=== PATIENT | female | born 1965 | race Caucasian/White ===

== ENCOUNTER 2016-12-09 03:50 | Inpatient (IN) | payer OTHER ==
[2016-12-09 04:07] LABS: #Basophils 0.1 thou/uL (0.0-0.2); #Eosinphils 0.2 thou/uL (0.0-0.7); #Lymphocytes 3.4 thou/uL (1.20-3.40); #Monocytes 0.9 thou/uL (0.11-0.59); #Neutrophils 7.2 thou/uL (1.40-6.50); %Basophils 0.9 % (0.0-1.0); %Eosinophils 1.5 % (0.0-10.0); %Lymphocytes 28.3 % (21.0-51.0); %Monocytes 7.9 % (0.0-10.0); Hematocrit 46.3 % (36.0-47.0); Mean Platelet Volume 7.4 fL (7.4-10.4); Red Blood Cell (RBC) Count 4.99 mill/uL (4.20-5.40); White Blood Cell (WBC) Count 11.8 thou/uL (4.8-10.8)
[2016-12-09 04:17] LABS: PTT 27.8 SEC (22.9-36.1); Prothrombin Time 12.8 SEC (12.0-14.7)
[2016-12-09 04:29] LABS: ALT (SGPT) 9 U/L (8-55); AST (SGOT) 12 U/L (5-34); Alkaline Phosphatase 96 U/L (40-150); Anion Gap 12 mmol/L (10-20); BUN (Urea Nitrogen) 8 mg/dL (9.8-20.1); Bilirubin, Total 0.3 mg/dL (0.2-1.2); Calc. Creatinine Clearance 0 mL/min (70-130); Carbon Dioxide 27 mmol/L (22-29); Chloride 106 mmol/L (98-107); Estimated GFR-MDRD 71; Globulin 3.1 g/dL (2.4-3.5); Protein, Total 6.6 g/dL (6.0-8.3)
[2016-12-09 04:47] LABS: Bilirubin Negative (Negative); Blood, Urine Negative (Negative); Glucose, Urine (Dipstick) Negative (Negative); Ketone, Urine Negative (Negative); Nitrite Negative (Negative); Protein, Urine (Dipstick) Negative (Neg-Trace); Urobilinogen 0.2 mg/dL (0.2-1.0)
[2016-12-09 04:51] LABS: Troponin I Less than 0.010 ng/mL (< 0.028)
[2016-12-09] MEDS ORDERED: Ondansetron HCl/PF 4 MG/2 ML Vial IVP PRN (05:00)
[2016-12-09] MEDS ORDERED: Acetaminophen 325 MG TAB PO PRN (05:00)
[2016-12-09] MEDS ORDERED: Ondansetron ODT 4 MG TAB SL PRN (05:00)
[2016-12-09] MEDS ORDERED: Acetaminophen 500 MG TAB ONE (05:01)
[2016-12-09 05:08] LABS: Amphetamine Detected (NotDetected); Methadone Not Detected (NotDetected); Methamphetamine Not Detected (NotDetected)
--- NOTE | 2016-12-09 08:36 | CT ---
PRELIMINARY REPORT/[facility]/EMERGENCY AFTER HOURS PROCEDURE: Addendum created by Dewey Matthews MD on 12/09/2016 4:36 AM Central Time ([place] \[place]\ [place]) THIS REPORT CONTAINS FINDINGS THAT MAY BE CRITICAL TO PATIENT CARE. The findings were verbally communicated via telephone conference with TROY PENA at 4:36 AM CDT on 12/09/2016. The findings were acknowledged and understood. Initial Report created on 12/09/2016 4:22 AM Central Time ([place] \[place]\ [place]) EXAM: CT Angiography Head Without and With Intravenous Contrast CLINICAL HISTORY: 51 years old, female; Signs and symptoms; Patient HX: Stroke alert TECHNIQUE: Axial computed tomographic angiography images of the head without and with intravenous contrast usin g CT angiography protocol. MIP reconstructed images were created and reviewed. Coronal and sagittal reformatted images were created and reviewed. CONTRAST: 70 mL of ISOVUE administered intravenously. COMPARISON: No relevant prior studies available. FINDINGS: VASCULATURE: Right internal carotid artery: Intracranial segment is patent with no significant stenosis. No occlu elaina. No aneurysm. Right anterior cerebral artery: No significant stenosis. No occlusion. No aneurysm. Right middle cerebral artery: No significant stenosis. No occlusion. No aneurysm. Right posterior cerebral artery: No significant stenosis. No occlusion. No aneurysm. Right vertebral artery: No hemodynamically significant stenosis. No aneurysm. Left internal carotid artery: Intracranial segment is patent with no significant stenosis. No occlus ion. No aneurysm. Left anterior cerebral artery: No significant stenosis. No occlusion. No aneurysm. Left middle cerebral artery: No significant stenosis. No occlusion. No aneurysm. Left posterior cerebral artery: No significant stenosis. No occlusion. No aneurysm. Left vertebral artery: No hemodynamically significant stenosis. No aneurysm. Basilar artery: No aneurysm. No significant stenosis. No occlusion. HEAD: Brain: No intracranial hemorrhage. No evidence of acute infarction. No mass effect or midline shift. No edema. Ventricles: Normal for age. No hydrocephalus. Bones/joints: No acute fracture. Soft tissues: Normal. Sinuses: Normal as visualized. No acute sinusitis. Mastoid air cells: Normal as visualized. No mastoid effusion. IMPRESSION: No acute intracranial abnormality. No hemodynamically significant stenosis or aneurysm. EXAM: CT Angiography Neck With Intravenous Contrast CLINICAL HISTORY: 51 years old, female; Signs and symptoms; Patient HX: Stroke alert TECHNIQUE: Axial computed tomographic angiography images of the neck with intravenous contrast using CT angiogr aphy protocol. MIP reconstructed images were created and reviewed. Coronal and sagittal reformatted images were created and reviewed. CONTRAST: 70 mL of ISOVUE administered intravenously. COMPARISON: No relevant prior studies available. FINDINGS: VASCULATURE: Right common carotid artery: No significant stenosis. No dissection or occlusion. Right internal carotid artery: Mild stenosis of the proximal right internal carotid artery. No hemod ynamically significant stenosis, dissection, or occlusion. Right external carotid artery: No occlusion. Right vertebral artery: No significant stenosis. No dissection or occlusion. Left common carotid artery: No significant stenosis. No dissection or occlusion. Left internal carotid artery: Mild stenosis of the proximal left internal carotid artery. No hemodyn amically significant stenosis, dissection, or occlusion. Left external carotid artery: No occlusion. Left vertebral artery: No significant stenosis. No dissection or occlusion. NECK: Bones/joints: Degenerative changes in the spine. No acute fracture. Normal alignment. Soft tissues: Normal as visualized. No mass. Lung apices: Paraseptal emphysematous changes. CAROTID STENOSIS REFERENCE USING NASCET CRITERIA: % ICA stenosis = (1 - narrowest ICA diameter/diameter of distal cervical ICA) x 100. Mild - <50% stenosis. Moderate - 50-69% stenosis. Severe - 70-94% stenosis. Near occlusion - 95-99% stenosis. Occluded - 100% stenosis. IMPRESSION: No dissection, hemodynamically significant stenosis, or occlusion in the carotid or vertebral arteri es. Nonacute/incidental findings above. Thank you for allowing us to participate in the care of your patient. Dictated and Authenticated by: Dewey Matthews MD 12/09/2016 4:22 AM Central Time ([place] \T\ [place]) FINAL REPORT CT HEAD WITHOUT CONTRAST CTA HEAD WITH IV CONTRAST AND 3D POST PROCESSING CT NECK WITH IV CONTRAST AND 3D POST PROCESSING: I agree with the preliminary report given by Dr. Dewey Matthews of [facility]. POS: [facility]
[2016-12-09] MEDS ORDERED: Aspirin 325 MG TAB PO SCH (09:00)
--- NOTE | 2016-12-09 10:30 | PDOC.EVN ---
Event Note - Event Note Event Note: pt seen , H& P dictated # [id number]
--- NOTE | 2016-12-09 12:41 | HP ---
DATE OF ADMISSION: 12/09/2016 CHIEF COMPLAINT: Tingling and numbness of the right side of the body. HISTORY OF PRESENT ILLNESS: The patient is a 51-year-old female with past medical history significa nt for COPD and anxiety. Patient was in usual state of health when she started having tingling and numbness in the right side of the body, including the right arm, right hand, right leg, and right fo ot basically from jaw to toes that woke her from sleep. Patient also had some mild headache. For t hat she presented to the emergency room and was admitted to rule out transient ischemic attack. Syeda arriola denies any previous history of high blood pressure, diabetes mellitus, hyperlipidemia, strokes, or thyroid problems. The patient denies any history of substance abuse; however, in the emergency room, her drug screen was positive for methamphetamines, opiates, and benzodiazepines. Currently, bill cheney is complaining of right hand numbness and right leg numbness. She has some trouble walking t o the bathroom. PAST MEDICAL HISTORY: 1. COPD. 2. Anxiety. Patient is on Xanax at home, but has recently stopped taking it because she was having too much drowsiness with that. PAST SURGICAL HISTORY: The patient has had a hysterectomy. The patient also donated a kidney to he r daughter. She has right kidney only. SOCIAL HISTORY: Patient smokes for past 30 years 1 pack a day, quit 2 years ago and then started sm oking for 3 months again because of some family related stress related to her mother's illness. Syeda arriola says she used to drink heavily in the past, but has quit for the past several years. She denie s substance abuse; however, a urine drug screen was positive as mentioned above. The patient does n ot work. FAMILY HISTORY: Significant for cancer in mother. MEDICATION LIST: Her home medications lists include Ambien, Xanax, furosemide, Prilosec, Spiriva, a nd albuterol. REVIEW OF SYSTEMS: Constitutional: No history of weight loss, weight gain, or chills or fever. Ey es: No history of visual disturbances, blurred vision, eye pain, glaucoma. No history of discharge from the eyes. ENT: No nasal discharge, sore throat, hoarseness of voice or difficulty in chewing or swallowing. Cardiac: No chest pain, palpitations, syncope, edema. No history of heart murmur. Respiratory: She has history of COPD, currently denies any wheezing or cough. Gastrointestinal: No abdominal pain, nausea, vomiting, diarrhea, constipation, black stool or blood in stool. Genito urinary: No dysuria, burning, frequency, hematuria, or flank pain. No history of kidney stones. M usculoskeletal: No history of joint pain, arthralgia red joints. No history of gout. No history o f arthritis. Skin: No history of skin rashes. Neurologic: As per history of present illness. He matological: No history of cancer, no history of weight loss. No history of abnormal bruising or b leeding. PHYSICAL EXAMINATION: GENERAL: This is a well-developed, well-nourished, middle-aged female in no apparent distress. VITAL SIGNS: Her blood pressure is 141/67, temperature 97.5, pulse rate 56, respiration rate 18, O2 sat 95%. HEENT: Normocephalic, atraumatic. Pupils are reactive to light and accommodation. No pallor or ic terus. Oral cavity shows tongue is central. No central cyanosis or pallor. NECK: Supple, no thyromegaly, no JVD, no bruit. CHEST: Bilateral clear to auscultation. CARDIOVASCULAR: PMI is in the left fifth intercostal space. S1, S2 are normal. No murmurs, no rub . ABDOMEN: Soft, nontender. Bowel sounds active. No guarding or rebound. No free fluid mass or org anomegaly. EXTREMITIES: No clubbing, cyanosis, or edema. NEUROLOGIC: Awake, alert, and oriented x3. Currently, no focal neurologic deficit noted. Patient has subjective numbness on the right side of the body. Speech is intact. Cranial nerves are intact . Gait is normal. Plantars are downgoing. LABORATORY DATA: Her urine drug screen positive for opiates, amphetamines and benzodiazepines. Her white count is 11.8, hemoglobin 15.1, platelet count is 302, neutrophils are 61.3%. PT, PTT is nor mal. Basic metabolic panel is within normal limits. LFTs are normal. UA is unremarkable. The patient had a CT angiography in the ER including [place], which was unremarkable. ASSESSMENT AND PLAN: 1. Transient ischemic attack. 2. Rule out thalamic stroke. 3. Substance abuse with methamphetamines. 4. Chronic obstructive pulmonary disease. 5. Single kidney. The patient is status post kidney donation to daughter. 6. Elevated blood pressure. No previous history of hypertension. 7. Tobacco abuse. DISCUSSION: At this time, we will do neuro checks q.4. We will get a Neurology consultation. Also , check MRI of brain to rule out thalamic stroke. We will check 2D echocardiogram, carotid Dopplers , and fasting lipid profile. Check thyroid function. The patient was counseled to stop smoking. S he denies any substance abuse. We will get PT, OT, and speech therapy evaluation. Further recommen dations will be made depending on course of clinical events.
--- NOTE | 2016-12-09 13:45 | MRI ---
EXAM: BRAIN MRI WITHOUT CONTRAST: HISTORY: Evaluate for stroke. Right-sided weakness. Symptoms involve the right arm and leg. COMPARISON: None. TECHNIQUE: Brain MRI is performed without contrast administration. Multisequential, multiplanar imaging is per formed. FINDINGS: Central arterial flow voids are maintained. There is subtle restricted diffusion involving the medi al left thalamus extending to the left internal capsule/left marquez radiata. There is subtle associ ated FLAIR hyperintensity. Additional areas of restricted diffusion are not appreciated. Calvarium has a normal marrow signal intensity. Midline brain parenchymal structures are unremarkable. Mini mal mucosal thickening of the ethmoid air cells. Adequate mastoid air cells aeration. No hemorrhage on the axial gradient echo sequence. IMPRESSION: Small infarct involving the left thalamus, left internal capsule, and left marquez radiata. POS: [facility]
[2016-12-09] MEDS ORDERED: ISOVUE-370 76%-LOCM 1 ML ONE (14:56)
[2016-12-09] MEDS ORDERED: Metoclopramide HCl 10 MG/2 ML VIAL IVP PRN (15:31)
[2016-12-09] MEDS: Heparin 5,000 UNITS/ML VIAL SC SCH (20:03)
[2016-12-09] MEDS ORDERED: Atorvastatin Calcium 10 MG TAB PO SCH (21:00)
--- NOTE | 2016-12-09 22:42 | CON ---
DATE OF CONSULTATION: 12/09/2016 NEUROLOGY CONSULTATION CONSULTING PHYSICIAN: Hospitalist Service. IMPRESSION: 1. Lacunar stroke on the left resulting in some right-sided numbness and mild weakness. 2. Tobacco use. PLAN: 1. Aspirin 81 mg per day. 2. Statin. 3. Patient can be discharged home tomorrow. Ms. Patiño is a 51-year-old, white female, who over the last few days developed some numbness on th e right side of the body. She initially noted some numbness in her foot, but did not pay any attent ion to it, the situation worsened, and then, she came in for evaluation. Initial CT scan of the bra in and CTA were unremarkable for any carotid or intracranial vascular disease. Her MRI of the brain showed a deep left thalamic and internal capsule area infarct. Her echocardiogram shows a normal e jection fraction. EKG shows normal sinus rhythm. Subjectively, her symptoms have not improved in a great deal. She has been up to get around the room with a slight limp. She can use her right hand , but it feels strange to her because her fingers are numb. She denies any past history of similar symptoms. PAST MEDICAL HISTORY: Otherwise, negative. ALLERGIES: LATEX. SOCIAL HISTORY: Positive for tobacco use. No illicit drug use. FAMILY HISTORY: Noncontributory. REVIEW OF SYSTEMS: No complaint of headache, nausea, vomiting, vertigo, double vision, chest pain. PHYSICAL EXAMINATION: GENERAL: She is a well nourished, middle-aged woman, who appears a bit older than her age. VITAL SIGNS: Have been stable. She had a heart rate in the 50s. HEENT: Pupils equal and reactive. Conjunctivae clear. Oropharynx clear. EXTREMITIES: No cyanosis, clubbing or edema. NEUROLOGIC: She is alert and cooperative. Her speech is fluent and clear. Cranial nerves II throu gh XII are intact. Motor exam showed good antigravity strength in the extremities. Sensation was s ubjectively decreased in the first 2 digits of the right hand and down in the sole of the foot. She can walk independently with a limp. [id number]-[id number] movements were smooth and symmetric. Reflexes were notable for an upgoing toe on the right. SUMMARY: This is a middle-aged woman with a lacunar infarct with some mild neurologic deficits. Hiral ramachandran appears to be independent in her mobility and can be discharged home on the current plan.
[2016-12-10] MEDS: Heparin 5,000 UNITS/ML VIAL SC SCH (08:23)
[2016-12-10] MEDS ORDERED: FLU VACC QS2017-18 36 mo. & older 0.5 ML SYRINGE IM ONE (09:00)
[2016-12-10] MEDS ORDERED: Aspirin 81 mg Enteric Coated Tablet PO SCH (09:00)
[2016-12-10 10:34] VITALS: TEMP 98.5
[2016-12-10] MEDS ORDERED: Aspirin 325 mg Enteric Coated Tablet PO SCH (11:15)
[2016-12-10 12:38] VITALS: BP 147/78
--- NOTE | 2016-12-10 18:21 | PDOC.EVN ---
Event Note - Event Note Event Note: d/c summary dictated # [id number]
--- NOTE | 2016-12-10 19:20 | DIS ---
DATE OF ADMISSION: 12/09/2016 DATE OF DISCHARGE: 12/10/2016 DISCHARGE DIAGNOSES: 1. Acute ischemic cerebrovascular accident. 2. Acute thalamic stroke. 3. Chronic obstructive pulmonary disease. 4. History of anxiety. 5. Amphetamine abuse. 6. Single kidney. 7. Resolved elevated blood pressure. 8. Tobacco abuse. 9. Hyperlipidemia. CONSULTANTS: Neurology. DISCHARGE MEDICATION: Please see discharge MAR. HOSPITAL COURSE: The patient was admitted from the emergency room with tingling and numbness on rig ht side of the body, including right arm, right hand, right leg and right foot. The patient was adm itted for possible transient ischemic attack. CT scan of the head done in the emergency room was no rmal. Urine drug screen was positive for methamphetamines. The patient admitted to taking Adderall , which her sister gave her. Also, urine drug screen positive for opiates and benzodiazepine. Mercer lorena, the patient does take medications for pain and anxiety. The patient remained stable during her hospital stay. A CT angio of the [place] of [place] done in the emergency room was negative for any occlusion. A 2D echocardiogram was done, which showed a LV ejection fraction of 55% to 66%. No quirino vular abnormalities. No LV thrombus. The patient was placed on aspirin and statin. MRI of the bra in was done, which showed small infarct involving the left thalamus, left internal capsule and left marquez radiata. The patient was seen by Neurology Service and was recommended only aspirin and stat in since the patient did not have any muscular deficit. She was cleared by physical therapy. The p atient was counseled not to take any medication containing methamphetamines. The patient had transi ently elevated blood pressure on admission, which resolved to a low normal. The patient was asympto matic. She was discharged to home in stable condition on 12/10/2016, with advised to see her PCP in 1 week.
[2016-12-11] MEDS ORDERED: Aspirin 325 mg Enteric Coated Tablet PO SCH (09:00)
== END 2016-12-10 12:25 | disposition home or self-care (01) | DRG 65 ==
LOC: ERS 03:50 → 2SE 05:32 → OBSVTOIN 05:32
PROVIDERS: ADMIT Internal Medicine; ATTEND Internal Medicine
DX: I63.9 Cerebral infarction, unspecified (principal); G81.91 Hemiplegia, unspecified affecting right dominant side; Z72.0 Tobacco use; J44.9 Chronic obstructive pulmonary disease, unspecified; Z90.710 Acquired absence of both cervix and uterus; Z90.5 Acquired absence of kidney; R20.0 Anesthesia of skin; F15.10 Other stimulant abuse, uncomplicated; E78.5 Hyperlipidemia, unspecified; F41.9 Anxiety disorder, unspecified; Z91.040 Latex allergy status; R20.2 Paresthesia of skin; R29.818 Other symptoms and signs involving the nervous system; R03.0 Elevated blood-pressure reading, without diagnosis of hypertension
CPT/HCPCS: 36415; 36416; 70496; 70498; 70551; 80053; 80061; 80306; 80307; 81003; 82553; 84484; 85025; 85610; 85730; 90471; 90682; 93005; 93306; G0008; G8978-GP-CI; G8979-GP-CI; G8980-GP-CI; G8987-GO-CI; G8988-GO-CI; G8989-GO-CI; G8996-GN-CH; G8997-GN-CH; J1644; J2765; Q2036